=== PATIENT | female | born 1995 | race Caucasian/White ===

== ENCOUNTER 2017-05-05 02:35 | Emergency (ER) | payer OTHER ==
[~2017-05-05] VITALS: Ht 172.7 cm; Wt 69.4 kg
[~2017-05-05 02:35] MED LIST: CITA20TA9 PO; MTR600X PO; PEDICHW50 PO
[2017-05-05 02:39] VITALS: TEMP 36.7; Ht 172.7 cm; Wt 69.4 kg
[2017-05-05] MEDS ORDERED: MoRPHine SULFATE 4 MG/ML 1 ML CARP\\VIAL IV STA (02:55)
[2017-05-05] MEDS ORDERED: ONDANSETRON INJ 2 MG/ML 2 ML VIAL IV STA (02:55)
[2017-05-05] MEDS ORDERED: LACTATED RINGER'S 1000ML 1,000 ML IV SCH (03:00)
[2017-05-05] MEDS ORDERED: BUSP15TA70 PO (03:14)
[2017-05-05 03:24] LABS: BASO % 0.2 %; BASO ABS # 0.02 K/uL (0-0.2); COMPLETE YES; EOS % 1.3 %; HEMATOCRIT 32.4 % (37-47); IG% 0.3 %; LYMPH % 21.9 %; LYMPH ABS # 1.97 K/uL (1.2-3.4); MEAN CELL VOLUME 86.4 fL (80-100); MEAN CORPUSCULAR HEMOGLOBIN 29.1 pg (25-34); MEAN CORPUSCULAR HGB CONC 33.6 g/dl (32-36); MONO % 6.1 %; NEUT % 70.2 %; PLATELET COUNT 182 K/uL (130-400); RED BLOOD COUNT 3.75 M/uL (4.2-5.4); WHITE BLOOD COUNT 8.98 K/uL (4.8-10.8)
[2017-05-05 03:25] VITALS: O2SAT 100
[2017-05-05 03:33] LABS: INR 0.9 (0.9-1.1); PROTHROMBIN TIME (PATIENT) 9.9 SECONDS (9.0-12.0)
[2017-05-05 03:42] LABS: BUN/CREATININE RATIO 17.9 (10-20); CALCIUM 8.6 mg/dl (8.5-10.1); CREATININE 0.67 mg/dl (0.60-1.20); POTASSIUM 3.7 mmol/L (3.5-5.1)
[2017-05-05 03:52] LABS: MANUAL MICROSCOPIC REQUIRED? YES; URINE APPEARANCE CLOUDY (CLEAR); URINE COLOR RED; URINE NITRITE NEG (NEG); URINE PH 5.5 (4.5-7.5); URINE SPECIFIC GRAVITY >= 1.030 (1.000-1.030); UROBILINOGEN NEG (NEG)
[2017-05-05 03:53] LABS: REVIEW REQ? NO
[2017-05-05 03:54] LABS: URINE BILIRUBIN NEG (NEG)
[2017-05-05 03:55] LABS: URINE RBC >30 /hpf (0-4); URINE WBC >30 /hpf (0-5)
[2017-05-05 03:57] LABS: URINE BACTERIA 1+ (NEG)
[2017-05-05 03:58] LABS: ZZUR CULT IF INDIC CLEAN CATCH YES
[2017-05-05 04:55] VITALS: BP 112/71; PULSE 70; O2SAT 97
--- NOTE | 2017-05-05 04:58 | EMERGENCY ROOM VISIT NOTE ---
History First contact with patient: 02:54 Chief Complaint: ED VAG BLEEDING Stated Complaint: S/P 3 DYS,BLEEDING,BLOOD CLOTS,PAIN History of Present Illness The patient is a 22 year old female who presents to the Emergency Room with complaints of pelvic pain and cramping with heavy bleeding for the past several hours who had an 3 days ago. Pain currently 6 out of 10. Nothing makes it better or worse described as cramping. It does not radiate. Patient states she has some mild bleeding since the but has gotten much worse over the past few hours. She is going through a pad an hour. This is her second . She has one living child. Patient denies chest pain, dyspnea , fever, chills, back pain, bleeding disorders, urinary symptoms. Patient was 12 weeks . Review of Systems See HPI for pertinent positives & negatives. A total of 10 systems reviewed and were otherwise negative. Past Medical/Surgical History Anxiety Social History Smoking Status: Current Every Day Smoker Drug Use: none Current/Historical Medications Scheduled Buspirone Hcl (Buspar), 15 MG PO DAILY Physical Exam Vital Signs Date Time Temp Pulse Resp B/P (MAP) Pulse Ox O2 Delivery O2 Flow Rate FiO2 05/05/17 04:30 65 05/05/17 04:04 60 16 107/60 99 Room Air 05/05/17 03:25 100 Room Air 05/05/17 03:25 62 16 112/69 99 05/05/17 02:39 36.7 72 20 108/70 99 Room Air Physical Exam VITALS: Vitals are noted on the nurse's note and reviewed by myself. Vital signs stable. GENERAL: White female, in no acute distress, nondiaphoretic, well-developed well -nourished. SKIN: Capillary reflex less than 2 seconds. HEENT: Normocephalic. PERRLA. EOMI. Nares patent. Mucous membranes moist. Neck is supple without nuchal rigidity. HEART: Regular rate and rhythm without murmurs gallops or rubs. LUNGS: Clear to auscultation bilaterally without wheezes, rales or rhonchi. No retractions or accessory muscle use. ABDOMEN: Positive bowel sounds x 4. Normal tympanic percussion. Soft, minimally tender suprapubic region, no CVA tenderness, without masses or organomegaly. Lomas sign negative. No guarding or rebound tenderness. exam: Normal external female genitalia, minimal blood in the vault, os is closed. Engineer Conductor present. Minimal cervical tenderness. No adnexal tenderness MUSCULOSKELETAL: No gross musculoskeletal defects. NEURO: Patient was alert and oriented to person place and time. Normal sensation to light and sharp touch. No focal neurological deficits. Medical Decision & Procedures Laboratory Results 05/05/17 03:07 Red Blood Count 3.75, Mean Corpuscular Volume 86.4, Mean Corpuscular Hemoglobin 29.1, Mean Corpuscular Hemoglobin Concent 33.6, Mean Platelet Volume 10.0, Neutrophils (%) (Auto) 70.2, Lymphocytes (%) (Auto) 21.9, Monocytes (%) (Auto) 6.1, Eosinophils (%) (Auto) 1.3, Basophils (%) (Auto) 0.2, Neutrophils # (Auto) 6.29, Lymphocytes # (Auto) 1.97, Monocytes # (Auto) 0.55, Eosinophils # (Auto) 0.12, Basophils # (Auto) 0.02 05/05/17 03:07 Test 05/05/17 03:07 05/05/17 03:25 White Blood Count 8.98 K/uL (4.8-10.8) Red Blood Count 3.75 M/uL (4.2-5.4) Hemoglobin 10.9 g/dL (12.0-16.0) Hematocrit 32.4 % (37-47) Mean Corpuscular Volume 86.4 fL (80-100) Mean Corpuscular Hemoglobin 29.1 pg (25-34) Mean Corpuscular Hemoglobin Concent 33.6 g/dl (32-36) Platelet Count 182 K/uL (130-400) Mean Platelet Volume 10.0 fL (7.4-10.4) Neutrophils (%) (Auto) 70.2 % Lymphocytes (%) (Auto) 21.9 % Monocytes (%) (Auto) 6.1 % Eosinophils (%) (Auto) 1.3 % Basophils (%) (Auto) 0.2 % Neutrophils # (Auto) 6.29 K/uL (1.4-6.5) Lymphocytes # (Auto) 1.97 K/uL (1.2-3.4) Monocytes # (Auto) 0.55 K/uL (0.11-0.59) Eosinophils # (Auto) 0.12 K/uL (0-0.5) Basophils # (Auto) 0.02 K/uL (0-0.2) RDW Standard Deviation 42.0 fL (36.4-46.3) RDW Coefficient of Variation 13.2 % (11.5-14.5) Immature Granulocyte % (Auto) 0.3 % Immature Granulocyte # (Auto) 0.03 K/uL (0.00-0.02) Prothrombin Time 9.9 SECONDS (9.0-12.0) Prothromb Time International Ratio 0.9 (0.9-1.1) Activated Partial Thromboplast Time 25.4 SECONDS (21.0-31.0) Partial Thromboplastin Ratio 1.0 Anion Gap 6.0 mmol/L (3-11) Est Creatinine Clear Calc Drug Dose 133.9 ml/min Estimated GFR () 145.6 Estimated GFR (Non- 125.7 BUN/Creatinine Ratio 17.9 (10-20) Calcium Level 8.6 mg/dl (8.5-10.1) Total Bilirubin 0.3 mg/dl (0.2-1) Aspartate Amino Transf (AST/SGOT) 12 U/L (15-37) Alanine Aminotransferase (ALT/SGPT) 16 U/L (12-78) Alkaline Phosphatase 63 U/L (45-117) Total Protein 6.6 gm/dl (6.4-8.2) Albumin 3.3 gm/dl (3.4-5.0) Globulin 3.3 gm/dl (2.5-4.0) Albumin/Globulin Ratio 1.0 (0.9-2) Human Chorionic Gonadotropin, Quant 2158 mIU/mL Urine Color RED Urine Appearance CLOUDY (CLEAR) Urine pH 5.5 (4.5-7.5) Urine Specific [place] >= 1.030 (1.000-1.030) Urine Protein 2+ (NEG) Urine Glucose (UA) NEG (NEG) Urine Ketones TRACE (NEG) Urine Occult Blood 3+ (NEG) Urine Nitrite NEG (NEG) Urine Bilirubin NEG (NEG) Urine Urobilinogen NEG (NEG) Urine Leukocyte Esterase TRACE (NEG) Urine RBC >30 /hpf (0-4) Urine WBC >30 /hpf (0-5) Urine Epithelial Cells >30 /lpf (0-5) Urine Bacteria 1+ (NEG) Medications Administered Medications (Trade) Dose Ordered Sig/Kaiser Route Start Time Stop Time Status Last Admin Dose Admin Lactated Ringer's 1,000 ml @ 0 mls/hr Q0M IV 05/05/17 03:00 06/04/17 02:59 05/05/17 03:22 999 MLS/HR ED Course Prior records/ancillary studies reviewed. Triage Nursing notes reviewed. The patient's history was concerning for vaginal bleeding and abdominal pain. Differential diagnosis: Etiologies such as retained products of conception, endometritis, complications, bleeding dyscrasia, trauma, infection, as well as others were entertained. Physical examination: As above. Vitals signs revealed stable. ER treatment provided: zofran On reassessment the patient felt better. Diagnostic interpretation by me: The labs revealed mild anemia. Urine seems consistent with contamination and sent for culture. Patient had no urinary symptoms. Imaging studies: UltrasoundUS PELVIS: Heterogeneous appearance of endometrium measuring 1.3 cm in thickness. No hypervascularity detected within the endometrium to suggest retained products of conception. Correlate with clinical findings. Uterine myometrium appears normal. Bilateral ovaries were not visualized due to overlying bowel gas. No adnexal masses or cysts. No free fluid within the pelvis. Radiologist: Ilya Quintero M.D. Consultation: A consultation was placed with the mineralogy professor physician, Dr Alvarez. The case was discussed and diagnostics were reviewed. She recommends anti-inflammatories with discharge and outpatient follow-up. This appears to be consistent with with postsurgical bleeding. There is no retained products of conception and ultrasound. Patient had no signs of infection. No fever. No leukocytosis. She is advised to take NSAIDs and to follow-up with [facility]RO [facility] TECHNICIAN in a few days or here in the ER sooner for severe pain, fevers, bleeding, worsening signs or symptoms or as needed. Patient had no urinary symptoms. She states she would wait for the urine culture results instead for possible antibiotics. Patient did not have acute abdomen on exam. She is well-appearing. By the evaluation outlined above emergent etiologies such as bleeding dyscrasia, ectopic , trauma, as well as others were deemed relatively unlikely. The pt informed about the findings as listed above. All questions were answered and pleased with the treatment. Return instructions were outlined and the patient was discharged in stable condition. Referral: The patient was referred to [facility] TECHNIC[facility] for follow-up in 2 to 3 days for a recheck of her current condition. Case reviewed with my attending Medical Decision As above Medication Reconcilliation Current Medication List: was personally reviewed by me Blood Pressure Screening Patient's blood pressure: Normal blood pressure Impression Primary Impression: Vaginal bleeding Additional Impression: Anemia Departure Information Dispostion Home / Self-Care Condition GOOD Referrals No Doctor, Assigned (PCP) Patient Instructions My [facility] Additional Instructions Rest. Stay well hydrated. No strenuous activity or intercourse until cleared by [facility]/E[facility]RO OPTICS TECHNICIAN. Zofran 4 tablet every 6 hours as needed for nausea and vomiting. Acetaminophen(Tylenol) may be used for fever or pain. Use 1000mg every six hours as needed. Avoid using more than 3000mg in a 24 hour period. (AND/OR) Ibuprofen(Motrin, Advil) may be used for fever or pain. Use 600mg every six hours as needed. Take with food. Avoid using more than 2400mg in a 24 hour period. Do not use 2400mg per day for more than three consecutive days without physician direction. Prolonged inappropriate use can lead to stomach upset or ulcers. Rest and drink plenty of fluids as tolerated. Continue current medications. Return to the ER immediately for worsening or persistent heavy vaginal bleeding , abdominal pain, vomiting, fevers, chest pains, difficulty breathing, worsening of your condition, or as needed. Follow up with your [facility]/E[facility]RO OPTICS TECHNICIAN in 2-3 days for a recheck of your current condition. Problem Qualifiers
[2017-05-05] MEDS ORDERED: ONDANSETRON HOME PACK 4MG OD TAB PO ONE (05:00)
--- NOTE | 2017-05-05 06:32 | DIAGNOSTIC IMAGING REPORT ---
PELVIC COMPLETE NON OB CLINICAL HISTORY: 3 days ago, 12 wks, ? [facility] VAGINAL BLEEDING COMPARISON STUDY: None FINDINGS: The uterus measured transaminase. The endometrial stripe measured 1.3 cm. The right ovary measured poorly seen due to bowel gas. The left ovary measured poorly seen Bowel gas. There is no ultrasonographic evidence of ovarian torsion. It should be noted that ovarian torsion can be present with normal Doppler ultrasonographic findings. There was no evidence of pathologic free pelvic fluid. IMPRESSION: Moderate prominence of the endometrium although no definite retained products of conception are identified. The above report was generated using voice recognition software. It may contain grammatical, syntax or spelling errors. Electronically signed by: Nic Burnett M.D. 05/05/2017 6:31 AM Dictated Date/Time: 05/05/2017 6:29 AM
== END 2017-05-05 05:00 | disposition home or self-care (01) ==
LOC: C.EDB 02:37
DX: O03.6 Delayed or excessive hemorrhage following complete or unspecified spontaneous abortion (principal); D64.9 Anemia, unspecified; F17.200 Nicotine dependence, unspecified, uncomplicated